=== PATIENT | female | born 1955 | race Caucasian/White ===

== ENCOUNTER → 2023-06-20 00:53 | Outpatient (CLI) | payer MEDICARE, SELFPAY ==
--- NOTE | 2023-06-20 | DI.DEXA_ITS ---
Exam(s) XR DEXA BONE DENSITY W/WO CELINE EXAM: XR DEXA BONE DENSITY W/WO CELINE CLINICAL HISTORY: OSTEOPOROSIS, M81.0, FRAGILITY FRACTURE TECHNIQUE: COMPARISON: No exams were available for comparison FINDINGS: Lateral Spine Image: Unremarkable. No compression deformities identified. Left hip: Total T-Score: -1.1 Total Z-Score: 0.3 T- and Z-scores: Findings are consistent with osteopenia. Lumbar Spine: Total T-Score: -0.7 Total Z-Score: 1.4 T- and Z-scores: Within normal limits. IMPRESSION: No evidence of osteoporosis.
== END ==
PROVIDERS: PCP Nurse Practitioner Family; Visit Provider Internal Medicine
DX: M81.0 Age-related osteoporosis without current pathological fracture (principal); Z13.820 Encounter for screening for osteoporosis
CPT/HCPCS: 77080

== ENCOUNTER → 2025-10-14 00:14 | Outpatient (CLI) | payer MEDICARE, SELFPAY ==
--- NOTE | 2025-10-14 10:14 | DI.DEXA_ITS ---
Exam(s) XR DEXA BONE DENSITY W/WO CELINE EXAM: XR DEXA BONE DENSITY W/WO CELINE CLINICAL HISTORY: OSTEOPOROSIS M81.0 F/U, ASSESS 13 RADIUS TECHNIQUE: Routine DEXA evaluation of the lumbar spine, hip, or forearm. COMPARISON: CR XR DEXA BONE DENSITY W/WO CELINE from 06/20/2023 FINDINGS: Performed on a [employer] unit. Lateral image: No compression fracture evident. Lumbar Spine total T-score: -0.8 which is in normal range. Prior reading in June 2023 was -0.7 Hip total T-score:-1.1 which is osteopenia range. This is the identical reading to what was evident in June 2023. Independent reading at the level of the femoral neck yields T-score of -1.3 which is osteopenia range. This is also identical reading to what was obtained on the study of June 2023. Forearm total T-score: -1.9 which is osteopenia range. Prior reading in June 2023 was -1.7. IMPRESSION: Bone mineral density measures in the osteopenia range for the hip and forearm. Fracture risk is moderate. Bone mineral density is in normal range in the lumbar spine and therefore fracture risk at this level is low. Note: Any spine fracture indicates 5x risk for subsequent spine fracture and 2x risk for subsequent hip fracture. World Health Organization criteria for BMD interpretation classify patients: Normal...... T- Score at or above -1.0 Osteopenic... T- Score between -1.0 and -2.5 Osteoporosis... T-Score at or below -2.5
== END ==
PROVIDERS: PCP Nurse Practitioner Family; Visit Provider Internal Medicine
DX: M81.0 Age-related osteoporosis without current pathological fracture (principal)
CPT/HCPCS: 77080